=== PATIENT | male | born 1955 | race Caucasian/White ===

== ENCOUNTER 2020-04-21 12:53 | Outpatient (CLI) | payer OTHER, SELFPAY ==
[2020-04-21 14:00] LABS: Alanine Aminotransferase 35 U/L (4-50); Albumin Level 4.4 g/dL (3.5-5.1); Alkaline Phosphatase 56 U/L (38-126); Anion Gap 7 mmol/L (8-16); Aspartate Amino Transferase 46 U/L (17-59); Bilirubin,Total 0.4 mg/dL (0.2-1.3); Blood Urea Nitrogen 12 mg/dL (9-20); Calcium 10.1 mg/dL (8.4-10.2); Carbon Dioxide 32 mmol/L (22-30); Chloride 100 mmol/L (98-107); Cholesterol 196 mg/dL (0-200); Estimated Glomerular Filt Rate > 60; Glucose 88 mg/dL (75-110); HDL Direct 31 mg/dL; Potassium 4.4 mmol/L (3.4-5.0); Sodium 139 mmol/L (137-145); Triglycerides 282 mg/dL (<150)
[2020-04-21 14:11] LABS: LDL Cholesterol Direct 129 mg/dL
[2020-04-21 14:29] LABS: Prostate Specific Antigen 4.5 ng/mL (< OR = 4.0)
== END 2020-04-21 12:54 | disposition home or self-care (01) ==
PROVIDERS: PCP Emergency Medicine; Visit Provider Emergency Medicine
DX: E78.5 Hyperlipidemia, unspecified (principal); Z12.5 Encounter for screening for malignant neoplasm of prostate
CPT/HCPCS: 36415; 80053; 80061; 84153; G0103

== ENCOUNTER 2020-05-01 12:19 | Outpatient (CLI) | payer OTHER, SELFPAY | END 2020-05-01 12:20 | disposition home or self-care (01) | PROVIDERS: PCP Emergency Medicine; Visit Provider Emergency Medicine | DX: Z20.828 Contact with and (suspected) exposure to other viral communicable diseases (principal) | CPT/HCPCS: 36415 ==

== ENCOUNTER 2020-06-20 07:08 | Outpatient (CLI) | payer OTHER, SELFPAY ==
--- NOTE | ~2020-06-20 | XR_ITS ---
EXAMINATION: XR chest 2V DATE: 06/20/2020 07:39 INDICATION: Paresthesias of the back and hands TECHNIQUE: PA and lateral views of the chest are obtained. COMPARISON: 06/15/2013 FINDINGS: The lungs are free of acute opacities. There is no pleural effusion or pneumothorax. Median sternotomy wires and mediastinal surgical clips are seen, likely from prior coronary artery bypass g rafting. There is moderate thoracic spondylosis. IMPRESSION: 1. No acute cardiopulmonary abnormality. Reviewed, dictated and finalized at location A. [employer]
[2020-06-20 07:54] LABS: Alanine Aminotransferase 34 U/L (4-50); Albumin Level 4.2 g/dL (3.5-5.1); Alkaline Phosphatase 59 U/L (38-126); Anion Gap 5 mmol/L (8-16); Aspartate Amino Transferase 40 U/L (17-59); Bilirubin,Total 0.4 mg/dL (0.2-1.3); Blood Urea Nitrogen 16 mg/dL (9-20); Calcium 9.7 mg/dL (8.4-10.2); Carbon Dioxide 29 mmol/L (22-30); Chloride 102 mmol/L (98-107); Cholesterol 203 mg/dL (0-200); Estimated Glomerular Filt Rate > 60; Glucose 102 mg/dL (75-110); HDL Direct 36 mg/dL; Potassium 4.6 mmol/L (3.4-5.0); Sodium 136 mmol/L (137-145); Triglycerides 169 mg/dL (<150)
[2020-06-20 08:04] LABS: LDL Cholesterol Direct 134 mg/dL
== END 2020-06-20 07:09 | disposition home or self-care (01) ==
PROVIDERS: PCP Emergency Medicine; Visit Provider Emergency Medicine
DX: E78.5 Hyperlipidemia, unspecified (principal); R06.00 Dyspnea, unspecified; Z20.828 Contact with and (suspected) exposure to other viral communicable diseases
CPT/HCPCS: 36415; 71046; 80053; 80061

== ENCOUNTER 2020-07-31 09:43 | Outpatient (CLI) | payer OTHER, SELFPAY | END 2020-07-31 09:44 | disposition home or self-care (01) | LOC: ANHCOVIDVC 09:43 | PROVIDERS: PCP Emergency Medicine | DX: Z23 Encounter for immunization (principal) | CPT/HCPCS: 0001A; 91300 ==

== ENCOUNTER 2020-08-21 09:41 | Outpatient (CLI) | payer OTHER, SELFPAY | END 2020-08-21 09:42 | disposition home or self-care (01) | LOC: ANHCOVIDVC 09:41 | PROVIDERS: PCP Emergency Medicine | DX: Z23 Encounter for immunization (principal) | CPT/HCPCS: 0002A; 91300 ==

== ENCOUNTER 2022-01-31 17:02 | Emergency (ER) | payer OTHER, MEDICARE, SELFPAY ==
[2022-01-31] VITALS (14 sets, daily range): BP systolic 146–170; BP diastolic 98–108; PULSE 64–91; RESP 18–20; TEMP 36.7; O2SAT 93–96
--- NOTE | ~2022-01-31 | CT_ITS ---
EXAMINATION: CT abdomen pelvis w con DATE: 01/31/2022 17:54 INDICATION: umbilical hernia TECHNIQUE: Computed tomography (CT) of the abdomen and pelvis was performed with 100 mL Omnipaque-350 intravenous contrast. Automated exposure control and iterative reconstruction technique were employe d. The dose-length product was 1421.24 mGy-cm. COMPARISON: None. FINDINGS: Lower thorax: Mild dependent atelectasis. Mild coronary artery calcification. Liver: Steatosis. Biliary/Gallbladder: Gallbladder is normal. No bile duct dilation. Pancreas: No mass or duct dilation. Spleen: Normal. Adrenals:No mass. Kidneys: No suspicious mass. Punctate bilateral nonobstructing calculi. Mild left perinephric and pro ximal periureteral stranding. 2 mm calcification in the proximal left ureter. No hydronephrosis GI tract: No small or large bowel dilation. Normal appendix. Diverticulosis. Short segment wall thick ening and pericolonic inflammatory change in the distal sigmoid in the left lower quadrant. Mesentery/Peritoneum: No ascites, mass, or free air. Retroperitoneum: No mass. Atherosclerotic abdominal aortic and/or arterial calcifications. Pelvis: Pelvic organs are within normal limits. Soft Tissues: Moderate sized fat-containing umbilical hernia and 1.7 cm neck. Internal fat stranding surrounding inflammatory change Bones: No acute osseous finding. IMPRESSION: 2 mm left proximal ureteral stone causing mild obstructive uropathy. Inflamed, fat-containing umbilic al hernia. Short segment perisigmoid wall thickening and inflammatory changes in the left lower quadr ant may reflect early, mild, or resolving diverticulitis. Reviewed, dictated and finalized at location K. IMPRESSION: 2 mm left proximal ureteral stone causing mild obstructive uropathy. Inflamed, fat-containing umbilical hernia. Short segment perisigmoid wall thickening and inflammatory changes in the left lower quadrant may reflect early, mild, or res olving diverticulitis.
[2022-01-31 17:17] LABS: Basophils Absolute Auto 0.1 K/mm3 (0.0-0.1); Eosinophils Absolute Auto 0.4 K/mm3 (0-0.3); Eosinophils Percent Auto 2.9 % (0-4.4); Hematocrit 43.3 % (42.0-52.0); Hemoglobin 14.8 g/dL (14.0-18.0); Immature Granulocyte Absolute 0.04 K/mm3 (0.00-0.031); Immature Granulocyte Percent A 0.3 % (0-0.5); Lymphocytes Absolute Auto 2.79 K/mm3 (0.9-3.2); Lymphocytes Percent Auto 20.5 % (18.3-44.2); Mean Corpuscular HGB Conc 34.2 g/dl (32-36); Mean Corpuscular Hemoglobin 29.1 pg (26-34); Mean Corpuscular Volume 85.2 fl (80-100); Mean Platelet Volume 9.3 fl (7.4-10.4); Monocytes Absolute Auto 1.5 K/mm3 (0.1-0.6); Monocytes Percent Auto 10.8 % (2.6-8.5); Neutrophils Absolute Auto 8.8 K/mm3 (1.3-6.7); Neutrophils Percent Auto 64.5 % (45.5-73.1); Platelet Count Result 302 k/mm3 (150-375); Red Blood Count 5.08 M/mm3 (4.6-6.20); Red Cell Distribution Width 12.8 % (11.5-14.5); White Blood Count 13.6 K/mm3 (4.5-10.0)
[2022-01-31 17:22] LABS: Appearance Urine Clear (Clear); Bilirubin Urine Negative (Negative); Color Urine Yellow (Yellow); Glucose Urine UA Negative (Negative); Ketones Urine Negative (Negative); Leukocyte Esterase Ur Negative LEU/UL (Negative); Nitrate Urine Negative (Negative); Protein Urine Negative (Negative); Urobilinogen Urine 0.2 mg/dL (<2.0); pH Urine 5.5 (5.0-9.0)
[2022-01-31 17:28] LABS: Alanine Aminotransferase 58 U/L (6-50); Albumin Level 4.5 g/dL (3.5-5.1); Alkaline Phosphatase 77 U/L (38-126); Anion Gap 10 mmol/L (8-16); Aspartate Amino Transferase 48 U/L (17-59); Bilirubin,Total 0.5 mg/dL (0.2-1.3); Blood Urea Nitrogen 12 mg/dL (9-20); Calcium 9.8 mg/dL (8.4-10.2); Carbon Dioxide 27 mmol/L (22-30); Chloride 102 mmol/L (98-107); Estimated CRCL calculation 80 ml/min; Estimated Glomerular Filt Rate > 60; Glucose 113 mg/dL (65-110); Lipase 54 U/L (23-300); Potassium 3.9 mmol/L (3.4-5.0); Sodium 139 mmol/L (137-145)
[2022-01-31 17:36] LABS: Add Urine Microscopic? YES; Blood Urine Trace-Intact (Negative)
[2022-01-31 17:38] LABS: RBC Urine 0-2 /hpf (0-2); Squamous Epithelial Cell Urine Few /hpf (Few); WBC Urine 0-3 /hpf (0-3)
[2022-01-31 17:40] LABS: Bacteria Urine None seen /hpf; Mucus Urine Few /lpf
--- NOTE | 2022-01-31 17:50 | ED.ABDPAIN ---
HPI - Abdominal Pain General Chief Complaint: Abdominal Pain Stated Complaint: abd pain Time Seen by Provider: 01/31/22 17:24 History of Present Illness HPI narrative: 66-year-old male history of umbilical hernia presents the emergency room with abdominal pain. Patient states that he has had umbilical hernia for several months, on states that he has been able to reduce it. States within the last week the hernia was unable to be reduced. Presents here for further evaluation. Patient denies fever. No nausea vomiting diarrhea or constipation. States that he was planning on having the umbilical hernia repaired Related Data Home Medications Medication Instructions Recorded Confirmed aspirin 325 mg tablet See Rx Instructions .Route .COMPLEX 05/09/19 10/26/21 tadalafil 5 mg tablet 5 mg PO DAILY 09/29/21 10/26/21 Allergies Allergy/AdvReac Type Severity Reaction Status Date / Time No Known Allergies Allergy Verified 11/17/21 13:35 Review of Systems Review of Systems: CONSTITUTIONAL: Denies fever, chills, or sweats. EYES: Denies visual changes, redness, or discharge. ENT: Denies rhinorrhea, congestion, sore throat, or otalgia. CARDIOVASCULAR: Denies chest pain, palpitations, or edema. RESPIRATORY: Denies cough or dyspnea. GASTROINTESTINAL: Reports abdominal pain GENITOURINARY: Denies dysuria or hematuria. SKIN: Denies rash or itching. MUSCULOSKELETAL: Denies back pain, joint pain, or myalgia. NEUROLOGIC: Denies headache, numbness, dizziness, or weakness. PSYCHIATRIC: Denies anxiety or depression. [facility] Past Medical History Medical History (Updated 01/31/22 @ 18:26 by Piyush Sage APRN) ASHD (arteriosclerotic heart disease) HLD (hyperlipidemia) Social History Social History Smoking status: Never smoker Alcohol intake: never Exam Narrative: GENERAL: Well-appearing, well-nourished, no physical limitations, and in no acute distress. HEAD: Normocephalic, atraumatic. EYES: Conjunctivae normal, PERRLA and EOMI. CHEST: Clear to auscultation. No respiratory distress. No wheezes rales or rhonchi. No tenderness. HEART: Regular rate and rhythm. No murmur heard. Normal peripheral pulses. ABDOMEN: Soft, umbilical tenderness, nonreducible umbilical hernia, normal active bowel sounds. BACK: No CVA tenderness; No cervical/thoracic/lumbar tenderness, step-offs, bony abnormality; FROM EXTREMITIES: Normal range of motion. No edema. No clubbing or cyanosis SKIN: Warm, dry, no rash. No noted wounds NEURO: No focal deficits. Alert and oriented x3. MAEW. CN's II-XI intact bilaterally, normal gait PSYCH: Cooperative. Normal mood and affect. Course Vital Signs Vital signs: Vital Signs Temperature 36.7 C 01/31/22 17:17 Pulse Rate 91 01/31/22 17:17 Respiratory Rate 20 01/31/22 17:17 Blood Pressure 160/102 H 01/31/22 17:17 Pulse Oximetry 96 01/31/22 17:17 Oxygen Delivery Room Air 01/31/22 17:17 Temperature 36.7 C 01/31/22 17:17 Pulse Rate 91 01/31/22 17:17 Respiratory Rate 20 01/31/22 17:17 Blood Pressure 160/102 H 01/31/22 17:17 Pulse Oximetry 96 01/31/22 17:17 Oxygen Delivery Room Air 01/31/22 17:17 MDM - Abdominal Pain Lab Data Result diagrams: 01/31/22 17:13 01/31/22 17:13 Labs: Lab Results 01/31/22 01/31/22 01/31/22 Range/Units 17:13 17:13 17:16 WBC 13.6 H (4.5-10.0) K/mm3 RBC 5.08 (4.6-6.20) M/mm3 Hgb 14.8 (14.0-18.0) g/dL Hct 43.3 (42.0-52.0) % MCV 85.2 (80-100) fl MCH 29.1 (26-34) pg MCHC 34.2 (32-36) g/dl RDW 12.8 (11.5-14.5) % Plt Count 302 (150-375) k/mm3 MPV 9.3 (7.4-10.4) fl Immature Gran % (Auto) 0.3 (0-0.5) % Neut % (Auto) 64.5 (45.5-73.1) % Lymph % (Auto) 20.5 (18.3-44.2) % [place] % (Auto) 10.8 H (2.6-8.5) % Eos % (Auto) 2.9 (0-4.4) % Baso % (Auto) 1.0 (0.2-1.2) % Lymph # (Auto) 2.79
[2022-01-31] MEDS: HYDROmorphone HCL INJ (*CRX) 1 MG/ML SYR 0.5 MG IV PUSH (18:39)
[2022-01-31] MEDS: SODIUM CHLORIDE 0.9% IV 100 ML 500 ML (18:40)
[2022-01-31] MEDS: AMOXICILLIN/CLAVULANATE K 875-125 MG TAB 1 TABLET PO (19:23)
== END 2022-01-31 19:43 | disposition home or self-care (01) ==
PROVIDERS: Emergency Medicine; Emergency Provider Nurse Practitioner Family; PCP Emergency Medicine
DX: K57.92 Diverticulitis of intestine, part unspecified, without perforation or abscess without bleeding (principal); N13.9 Obstructive and reflux uropathy, unspecified; N20.1 Calculus of ureter; K42.9 Umbilical hernia without obstruction or gangrene; I25.10 Atherosclerotic heart disease of native coronary artery without angina pectoris; E78.5 Hyperlipidemia, unspecified
CPT/HCPCS: 36415; 74177; 80053; 81001; 83690; 85025; 96361; 96374; 99284; A9270; J1170; Q9967

== ENCOUNTER 2022-02-23 07:48 | Outpatient (CLI) | payer OTHER, MEDICARE, MEDICAID, SELFPAY ==
--- NOTE | ~2022-02-23 | XR_ITS ---
EXAMINATION: XR abdomen/kub 1V INDICATION: Left ureteral stone TECHNIQUE: Supine views of the abdomen were obtained on 2 radiographs. COMPARISON: CT from today FINDINGS: No urolithiasis is identified. The bowel gas pattern is normal. There is moderate lumbar sp ondylosis. Phleboliths are noted in the pelvis. IMPRESSION: 1. No urolithiasis identified. Reviewed, dictated and finalized at location A.
--- NOTE | ~2022-02-23 | CT_ITS ---
EXAMINATION: CT abdomen pelvis wo con DATE: 02/23/2022 08:09 INDICATION: Left ureteral stone TECHNIQUE: Computed tomography (CT) of the abdomen and pelvis was performed without intravenous contr ast. The dose-length product (DLP) was 863.56 mGy-cm. Automated exposure control and iterative recons truction technique were employed. COMPARISON: 01/31/2022 FINDINGS: Minimal dependent atelectasis is present in the lung bases. The heart size is normal. The l iver, spleen, pancreas, gallbladder, and adrenal glands are normal. The kidneys are unremarkable. No urolithiasis is identified. No pathologically enlarged abdominal or pelvic lymph nodes are identified . There is no free intraperitoneal gas or evidence of bowel obstruction. Colonic diverticulosis is pr esent without evidence of diverticulitis. An area of mild perisigmoid fatty infiltration is seen in t he left lower quadrant without significant change since the prior examination, likely chronic rather than acute diverticulitis. There is a small umbilical hernia containing fat with increasing infiltrat ion of the herniated fat. There is moderate lumbar spondylosis. The appendix is normal. IMPRESSION: 1. No definite urolithiasis identified. 2. Small umbilical hernia containing fat with increasing inflammation and herniated fat. Reviewed, dictated and finalized at location A. IMPRESSION: 1. No definite urolithiasis identified. 2. Small umbilical hernia containing fat with increasing inflammation and herni ated fat.
== END 2022-02-23 07:49 | disposition home or self-care (01) ==
PROVIDERS: PCP Emergency Medicine; Visit Provider Nurse Practitioner Adult Health
DX: N20.1 Calculus of ureter (principal); K42.9 Umbilical hernia without obstruction or gangrene
CPT/HCPCS: 74018; 74176

== ENCOUNTER 2022-03-05 07:27 | Outpatient (CLI) | payer MEDICARE, OTHER, SELFPAY ==
[2022-03-05 07:54] LABS: Hemoglobin A1C 6.1 % (<5.7)
[2022-03-05 07:57] LABS: Alanine Aminotransferase 49 U/L (6-50); Albumin Level 4.6 g/dL (3.5-5.1); Alkaline Phosphatase 72 U/L (38-126); Anion Gap 7 mmol/L (8-16); Aspartate Amino Transferase 38 U/L (17-59); Bilirubin,Total 0.5 mg/dL (0.2-1.3); Blood Urea Nitrogen 20 mg/dL (9-20); Calcium 9.6 mg/dL (8.4-10.2); Carbon Dioxide 27 mmol/L (22-30); Chloride 104 mmol/L (98-107); Cholesterol 192 mg/dL (0-200); Estimated Glomerular Filt Rate > 60; Glucose 123 mg/dL (65-110); HDL Direct 38 mg/dL; Potassium 4.4 mmol/L (3.4-5.0); Sodium 138 mmol/L (137-145); Triglycerides 200 mg/dL (<150)
[2022-03-05 08:08] LABS: LDL Cholesterol Direct 108 mg/dL
[2022-03-08 19:45] LABS: Vitamin D 1,25 (OH)2 Total 36 pg/mL (18-72); Vitamin D2 1,25 (OH)2 <8 pg/mL; Vitamin D3 1,25 (OH)2 36 pg/mL
== END 2022-03-05 07:28 | disposition home or self-care (01) ==
PROVIDERS: PCP Emergency Medicine; Visit Provider Emergency Medicine
DX: N20.0 Calculus of kidney (principal); R53.83 Other fatigue; R73.9 Hyperglycemia, unspecified; E78.5 Hyperlipidemia, unspecified
CPT/HCPCS: 36415; 80053; 80061; 82652; 83036

== ENCOUNTER 2022-03-22 08:04 | Outpatient (CLI) | payer OTHER, MEDICARE, SELFPAY ==
--- NOTE | 2022-03-22 08:00 | ECG_ITS ---
Measurements Intervals [place] Rate: 80 P: 1 TX: 192 QRS: -14 QRSD: 94 T: 58 QT: 361 QTc: 416 Interpretive Statements SINUS RHYTHM INFERIOR MYOCARDIAL INFARCTION [40+ ms Q WAVE AND/OR ST/T ABNORMALITY IN II/aVF], PROBABLY OLD BASELINE ARTIFACT PRESENT NO PREVIOUS ECG AVAILABLE FOR COMPARISON Electronically Signed On 03-22-2022 16:14:32 CDT by Yovanny Wilson M.D.
== END 2022-03-22 08:05 | disposition home or self-care (01) ==
LOC: ANHSURGERY 08:09
PROVIDERS: PCP Emergency Medicine; Visit Provider Surgery
DX: K42.0 Umbilical hernia with obstruction, without gangrene (principal); I10 Essential (primary) hypertension; Z01.818 Encounter for other preprocedural examination; R94.31 Abnormal electrocardiogram [ECG] [EKG]
CPT/HCPCS: 36415; 86850; 86900; 86901; 93005

== ENCOUNTER 2022-03-28 02:35 | Day surgery (SDC) | payer OTHER, MEDICARE, SELFPAY ==
[2022-03-15 14:11] VITALS: BMI 40.5
--- NOTE | 2022-03-15 14:46 | PC.NURSE ---
Report to the Outpatient Waiting Room, entrance under the green pavilion located off [facility], at time __8:00AM on date __03/28/22___. Planned Procedure Time: __10:00AM . Time changes happen often and if your time is changed the preop area will call you the afternoon before. - You and your visitor will be asked to self-screen and do not enter if you have any COVID symptoms. - We encourage only one visitor and NO visitors under age 16 are allowed at this time. Your visitor will receive communication by the phone number that is given day of service. - The patient visitor is requested to social distance or may leave the building when not with patient due to restrictions. - A mask is required within the hospital. Patients may have clear liquids (water, carbonated beverages, clear teas, apple juice) until 3 hours prior to surgery with a maximum of 20 ounces. - No food from midnight until time of surgery. Take the following medications with a SIP of water the morning of surgery: ___AMLODIPINE Medications to discontinue per physician ___DECREASE ASPIRIN FROM 325MG TO 81MG 7 DAYS PRE-OP PER DR LINN'S ORDER. PT'S STATES SHE WILL CONTACT GAMBLING BROKER TO CONFIRM. _ Date to take lower dose__03/21/22 Please no make-up, nail kiswahili, hairspray, perfume, deodorant, or body powder the day of surgery. No jewelry (including any body piercings) or valuables the day of surgery, leave them at home. Please take a shower or bath the night before, or the morning of, surgery with an antibacterial soap. Wear comfortable, loose fitting clothing. Children are encouraged to wear pajamas. - Jewelry must be removed prior to entering the operating room. Rings and piercings that are not removed may be cut off. - The hospital will not accept responsibility for valuables. - Please leave all valuables, including medications, at home the day of surgery. *HIBICLENS SHOWER MORNING OF SURGERY* If you are going home after surgery, a licensed crude oil driver must drive you home. - NO public transportation without another adult. - We recommend that an adult stay with you for 24 hours following discharge. - We also recommend that you do not drive, make important decision, drink alcoholic beverages, or take any drugs that were not prescribed by your health care provider for at least 24 hours after your discharge time. Follow any additional instructions given to you from your surgeon. If you or anyone in your household have experienced Covid symptoms in the past week, please notify your surgeon or the nurse liaison at the phone number below for possible testing. Telephone instructions given to _PATIENT AND -BARB___and asked if any additional questions and then verbalized understanding. Patient advised to call surgeon office or pre surgery nurse liaison [phone] if any additional questions.
[2022-03-28] VITALS (11 sets, daily range): BP systolic 116–165; BP diastolic 79–98; PULSE 81–90; RESP 14–23; TEMP 36.6–36.9; O2SAT 92–97
--- NOTE | 2022-03-28 08:33 | P.HP_ITS ---
H&P: HPI History of Present Illness Date/Time: 03/28/22 08:33 Chief Complaint: incarcerated umbilical hernia Narrative: Bhaskar is a 66 y/o male who presents to the office accompanied by his following recent visit at [facility] ED on 01/31/22 due to abdominal pain. Patient states that he has had a bulge at his umbilicus for about 3 years. He states there has been an increase in size over the years. States he has been able to reduce the bulge, however, the week prior to going to the ED he had been unable to reduce it. Imaging c/w incarcerated umbilical hernia. Review of Systems Review of Systems: All systems reviewed & are unremarkable except as noted in HPI and below PMFSH Past Medical History Medical History ASHD (arteriosclerotic heart disease) HLD (hyperlipidemia) Surgical History Surgical History Status post double vessel coronary artery bypass Family History Family History Mother Breast cancer Unknown Heart disease Social History Social History Social History: drinks tea daily Smoking status: Never smoker Alcohol intake: current Alcohol use details: rarely drinks alcohol-1 beer/year Substance use: never Living arrangements: with family Additional living arrangements comments: 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 care 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: No Meds Home Medications and Allergies Home Medications Medication Instructions Recorded Confirmed Type aspirin 325 mg tablet See Rx Instructions .Route .COMPLEX 05/09/19 03/15/22 History atorvastatin 80 mg tablet 80 mg PO DAILY #90 tabs 01/11/21 03/15/22 Rx fenofibrate nanocrystallized 48 mg 48 mg PO DAILY #90 tabs 06/21/21 03/15/22 Rx tablet (Tricor) tadalafil 5 mg tablet 5 mg PO DAILY 09/29/21 03/15/22 History amlodipine 5 mg tablet (Norvasc) 5 mg PO DAILY #90 tabs 02/01/22 03/15/22 Rx zolpidem 10 mg tablet (Ambien) 10 mg PO .qhs PRN insomnia #30 tabs 09/19/22 10/18/22 Rx losartan 50 mg tablet 100 mg PO QAM 03/15/22 03/15/22 History Allergies Allergy/AdvReac Type Severity Reaction Status Date / Time No Known Allergies Allergy Verified 03/15/22 14:05 Exam Const: General: cooperative, comfortable, no acute distress and obese Resp: Auscultation: clear to auscultation bilaterally Cardio: Rate: regular rate Rhythm: regular rhythm GI: Inspection: normal to inspection, distended and obesity GI Palp: Yes abdominal tenderness, Yes Soft to palpation, Yes Tenderness to palpation present (GI), No Guarding due to palpation present (GI), No Rigid due to palpation and Yes Hernia present Other: incarcerated [facility] Assessment and Plan Assessment and plan (1) Incarcerated umbilical hernia: Code(s): K42.0 - Umbilical hernia with obstruction, without gangrene Status: Acute Assessment and Plan: will setup for robotic assisted repair c mesh (2) ASHD (arteriosclerotic heart disease): Code(s): I25.10 - Atherosclerotic heart disease of [place] coronary artery without angina pectoris Status: Acute Assessment and Plan: stable and medically cleared
--- NOTE | 2022-03-28 08:36 | WPDHPUPDATE1 ---
History and Physical Update Update Date/Time: 03/28/22 08:36 History and Physical has been reviewed, including an updated exam of the patient. There are NO changes in the patient's condition. Risks, benefits, and alternatives have been discussed and questions answered. Patient agrees to proceed with procedure.
--- NOTE | 2022-03-28 09:10 | WPDANESEPPF ---
Anes - Initial Pre Proc Eval Procedure: Operation Date: 03/28/22 10:00 Proposed Procedures p Robotic Assisted Incarcerated Umbilical Hernia Repair with Mesh - Janel Moses MD Date/Time: 03/28/22 09:10 Surgeon: Janel Moses MD Pre Op Diagnosis: incarcerated umbilical hernia Patient Data Age: 66 Gender: M Height: 1.68 m Weight: 114 kg Allergies Allergy/AdvReac Type Severity Reaction Status Date / Time No Known Allergies Allergy Verified 03/15/22 14:05 Home Medications Medication Instructions Recorded Confirmed Type aspirin 325 mg tablet See Rx Instructions .Route .COMPLEX 05/09/19 03/15/22 History atorvastatin 80 mg tablet 80 mg PO DAILY #90 tabs 01/11/21 03/15/22 Rx fenofibrate nanocrystallized 48 mg 48 mg PO DAILY #90 tabs 06/21/21 03/15/22 Rx tablet (Tricor) tadalafil 5 mg tablet 5 mg PO DAILY 09/29/21 03/15/22 History amlodipine 5 mg tablet (Norvasc) 5 mg PO DAILY #90 tabs 02/01/22 03/15/22 Rx zolpidem 10 mg tablet (Ambien) 10 mg PO .qhs PRN insomnia #30 tabs 02/14/22 03/15/22 Rx losartan 50 mg tablet 100 mg PO QAM 03/15/22 03/15/22 History Patient hx anesthesia problems: none Family hx anesthesia problems: none Results Review: All pre-operative results and documents have been reviewed as part of the pre-operative evaluation. 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 Informed Consent: The patient's anesthetic plan and its attendant risks and benefits were discussed with the patient/family/POA. Questions were solicited and answers provided to the satisfaction of the patient/family/POA.
[2022-03-28] MEDS: ACETAMINOPHEN 500 MG TABLET 1000 MG PO (09:30)
[2022-03-28] MEDS: LACTATED RINGERS 1,000 ML 30 ML IV CONT ×2 (09:30→12:10)
[2022-03-28] MEDS: ceFAZolin 2 GM/D5W 50 ML 2 GM/50 ML BAG IVPB (09:52)
[2022-03-28] MEDS: BUPIVACAINE/EPINEPHRINE 0.25% 50 ML VIAL 30 ML INFILTRATE (10:49)
--- NOTE | 2022-03-28 12:07 | W.PM.PROC2 ---
Procedure Note - Detailed Date of Procedure 03/28/22 Pre-op Diagnosis incarcerated umbilical hernia Post-op Diagnosis Same Procedure Performed Robotic assisted transabdominal pre peritoneal repair incarcerated umbilical hernia with mesh Surgeon Janel Moses MD Anesthesia General Indications 66-year-old male presenting with a sizable incarcerated umbilical hernia Findings 3.5 cm umbilical hernia c incarcerated preperitoneal fat Description of Procedure The patient was taken the operating room placed in the supine position. After adequate induction of general anesthesia, the patient was prepped and draped in normal sterile fashion. A time-out was then done to verify the patient's identity as well as the procedure being performed. I began by making a 5 mm incision in the left upper quadrant. Through this, a Veress needle was placed into the peritoneal cavity and CO2 gas was insufflated. After adequate pneumoperitoneum was achieved, a 5 mm trocar was placed through this incision. I then placed the laparoscope through this trocar site and under direct visualization I placed a 8 mm port in the left mid abdomen as well as an additional 8 mm port in the left lower abdomen. I then moved the camera to the lower port and replaced the 5 mm port with a 12 mm airport. The robot was then docked to the 3 port sites. I then went to the robotic console. I began by identifying the hernia. A moderate-sized incarcerated umbilical hernia was noted. I created a preperitoneal flap approximately 6 cm lateral to the hernia. This flap was carried widely superior and inferior to the defect. I then was able to reduce this hernia. The hernia was noted to contain a large amount of preperitoneal fat. Once reduced, I also reduced and dissected out the hernia sac. I then carried the flap distally past the hernia. I then closed the approximately 3.5 cm defect with 0 strata fix suture. I then placed a 4x6 in [address] mesh into the abdominal cavity. The positional stitch was placed in the middle of the mesh and brought up centering the mesh over the defect. Once this was done, I used 3.0 vicry suture interrupted in the four cardinal directions to hold the mesh in place. Once the mesh was completely positioned, I was happy with our tension-free repair. The mesh was noted to have good overlap of the defect. I then closed the flap with 2 0 V lock. At this point, the robot was undocked and all ports were removed. I then closed the 12 mm port site with an 0 Vicryl [id number] suture at the fascial level. All port sites were then closed with 4 O Monocryl subcuticular suture. The patient tolerated the procedure well, is extubated in the operating room postoperative, and will be transferred to the recovery room in stable condition. Implants 4 x 6 in Ventralight mesh Estimated Blood Loss 10 Drains No Packing No Pathology None sent Complications No immediate complications Condition Stable Disposition PACU
[2022-03-28] MEDS: fentaNYL CITRATE INJ (*CRX) 100 MCG/2 ML VIAL 25 MCG IV PUSH ×2 (12:51→12:57)
[2022-03-28] MEDS: oxyCODONE HCL (*CRX) 5 MG TAB IR PO (15:08)
== END 2022-03-28 15:15 | disposition home or self-care (01) ==
PROVIDERS: PCP Emergency Medicine; Visit Provider Surgery
PROC: (CPT 49653; principal; 2022-03-28 10:00)
DX: K42.0 Umbilical hernia with obstruction, without gangrene (principal); I25.10 Atherosclerotic heart disease of native coronary artery without angina pectoris; E78.5 Hyperlipidemia, unspecified; Z79.82 Long term (current) use of aspirin; Z95.1 Presence of aortocoronary bypass graft; E66.01 Morbid (severe) obesity due to excess calories; Z68.41 Body mass index [BMI] 40.0-44.9, adult
CPT/HCPCS: 49653; S2900; A9270; C1781; J0330; J0690; J1100; J1170; J2250; J2370; J2405; J2704; J3010; J7120

== ENCOUNTER 2022-08-01 07:11 | Outpatient (CLI) | payer OTHER, MEDICARE, SELFPAY ==
[2022-08-01 07:41] LABS: Alanine Aminotransferase 40 U/L (6-50); Albumin Level 4.1 g/dL (3.5-5.1); Alkaline Phosphatase 65 U/L (38-126); Anion Gap 3 mmol/L (8-16); Aspartate Amino Transferase 38 U/L (17-59); Bilirubin,Total 0.7 mg/dL (0.2-1.3); Blood Urea Nitrogen 15 mg/dL (9-20); Carbon Dioxide 29 mmol/L (22-30); Chloride 106 mmol/L (98-107); Cholesterol 177 mg/dL (0-200); Estimated Glomerular Filt Rate > 60; Glucose 103 mg/dL (65-110); HDL Direct 33 mg/dL; Potassium 4.1 mmol/L (3.4-5.0); Sodium 138 mmol/L (137-145); Triglycerides 146 mg/dL (<150)
[2022-08-01 07:52] LABS: LDL Cholesterol Direct 111 mg/dL
[2022-08-01 08:07] LABS: Prostate Specific Antigen 5.7 ng/mL (< OR = 4.0)
== END 2022-08-01 07:12 | disposition home or self-care (01) ==
LOC: ANHLAB 07:13
PROVIDERS: PCP Emergency Medicine; Visit Provider Emergency Medicine
DX: E78.5 Hyperlipidemia, unspecified (principal); I10 Essential (primary) hypertension; Z12.5 Encounter for screening for malignant neoplasm of prostate
CPT/HCPCS: 36415; 80053; 80061; 84153; G0103

== ENCOUNTER 2022-10-28 07:15 | Outpatient (CLI) | payer OTHER, MEDICARE, SELFPAY ==
[2022-10-28 10:17] LABS: Prostate Specific Antigen 4.7 ng/mL (< OR = 4.0)
== END 2022-10-28 07:16 | disposition home or self-care (01) ==
PROVIDERS: PCP Emergency Medicine; Visit Provider Urology
DX: R97.20 Elevated prostate specific antigen [PSA] (principal)
CPT/HCPCS: 36415; 84153; G0103

== ENCOUNTER 2024-01-24 01:30 | Day surgery (SDC) | payer OTHER, MEDICARE, SELFPAY ==
[2024-01-19 12:26] VITALS: BMI 42.7
[2024-01-24 07:38] VITALS: BP 142/95; PULSE 80; RESP 18; TEMP 36.1; O2SAT 96; BMI 39.7
[2024-01-24] MEDS: LACTATED RINGERS 1,000 ML 150 ML IV CONT (07:56)
--- NOTE | 2024-01-24 08:01 | WPDANESEPPF ---
Anes - Initial Pre Proc Eval Procedure: Operation Date: 01/24/24 09:00 Proposed Procedures p Esophagogastroduodenoscopy - Tima Goodwin MD Date/Time: 01/24/24 08:01 Surgeon: Tima Goodwin MD Pre Op Diagnosis: GERD Patient Data Age: 68 Gender: M Height: 1.68 m Weight: 111.7 kg Last Vital Signs Temp 97.0 F L 01/24/24 07:38 Pulse 80 01/24/24 07:38 Resp 18 01/24/24 07:38 BP 142/95 H 01/24/24 07:38 Pulse Ox 96 01/24/24 07:38 O2 Del Method Room Air 01/24/24 07:38 Allergies Allergy/AdvReac Type Severity Reaction Status Date / Time No Known Allergies Allergy Verified 01/24/24 07:45 Home Medications Medication Instructions Recorded Confirmed Type aspirin 325 mg tablet See Rx Instructions .Route .COMPLEX 05/09/19 01/24/24 History tadalafil 5 mg tablet 5 mg PO DAILY 09/29/21 01/24/24 History fenofibrate nanocrystallized 48 mg See Rx Instructions .Route 10/03/22 01/24/24 Rx tablet .COMPLEX #90 tabs atorvastatin 80 mg tablet 80 mg PO DAILY #90 tabs 12/09/22 01/24/24 Rx nystatin-triamcinolone 100,000 See Rx Instructions .Route 01/16/23 01/24/24 Rx unit/g-0.1 % topical cream .COMPLEX #60 grams albuterol sulfate 90 mcg/actuation See Rx Instructions .Route 02/13/23 01/24/24 Rx aerosol inhaler .COMPLEX #8.5 ea triamcinolone acetonide 0.1 % See Rx Instructions .Route 02/15/23 01/24/24 Rx topical ointment .COMPLEX #60 grams fluticasone propionate 50 1 spray intranasal BID #48 grams 04/17/23 01/24/24 Rx mcg/actuation nasal spray,suspension (Flonase Allergy Relief) ketoconazole 2 % topical cream See Rx Instructions .Route 05/15/23 01/24/24 Rx .COMPLEX #30 grams losartan 50 mg tablet See Rx Instructions .Route 08/09/23 01/24/24 Rx .COMPLEX #180 tabs zolpidem 10 mg tablet 10 mg PO QHS PRN insomnia #30 tabs 12/15/23 01/24/24 Rx amlodipine 5 mg tablet See Rx Instructions .Route 01/05/24 01/24/24 Rx .COMPLEX #90 tabs Patient hx anesthesia problems: none Family hx anesthesia problems: none Results Review: All pre-operative results and documents have been reviewed as part of the pre-operative evaluation. [facility] Past Medical History Medical History Actinic keratosis of left cheondoism Acute pain of left wrist ASHD (arteriosclerotic heart disease) Atherosclerotic heart disease of [place] coronary artery with angina pectoris Benign prostatic hyperplasia Close exposure to COVID-19 virus Contact dermatitis Cough Dry cough Dyspnea on exertion Elevated fasting glucose Fever HLD (hyperlipidemia) Hyperglycemia Left lower quadrant pain Sinus congestion Sinusitis URI with cough and congestion URI, acute Surgical History Surgical History H/O umbilical hernia repair 03/28/22 Robotic assisted transabdominal pre peritoneal repair incarcerated umbilical hernia with mesh Status post double vessel coronary artery bypass Family History Family History Mother Breast cancer Unknown Heart disease Social History Social History Social History: drinks tea daily Smoking status: Never smoker Second hand tobacco smoke exposure: No Alcohol intake: never Alcohol use details: rarely drinks alcohol-1 beer/year Substance use: never Substance use type: does not use Current Housing: Decline to Answer Concerned About Future Housing: Decline to Answer Difficulty Paying Gas/Electric Bills: Decline to Answer Difficulty Paying for Meds: Decline to Answer Currently Unemployed: Decline to Answer Education: Decline to Answer Difficulty w/ Childcare or Family Care: Decline to Answer Living arrangements: with family Additional living arrangements comments: Occupation/Education: occupation Additional occupation/e
--- NOTE | 2024-01-24 09:09 | PM.HPGS ---
History of Present Illness History of Present Illness Consent: Risks, benefits, and alternatives have been discussed and questions answered. Patient agrees to proceed with procedure. Chief complaint: GERD Narrative: Bhaskar Dunbar is a 68 year old male with coughing spells, recently started using nexium otc. Never had EGD. Review of Systems Review of Systems: All systems reviewed & are unremarkable except as noted in HPI and below PMFSH Past Medical History Medical History (Updated 01/24/24 @ 09:11 by Tima Goodwin MD) Actinic keratosis of left denominational Acute pain of left wrist ASHD (arteriosclerotic heart disease) Atherosclerotic heart disease of [place] coronary artery with angina pectoris Benign prostatic hyperplasia Close exposure to COVID-19 virus Contact dermatitis Cough Dry cough Dyspnea on exertion Elevated fasting glucose Fever HLD (hyperlipidemia) Hyperglycemia Left lower quadrant pain Sinus congestion Sinusitis URI with cough and congestion URI, acute Surgical History Surgical History H/O umbilical hernia repair 03/28/22 Robotic assisted transabdominal pre peritoneal repair incarcerated umbilical hernia with mesh Status post double vessel coronary artery bypass Family History Family History Mother Breast cancer Unknown Heart disease Social History Social History Social History: drinks tea daily Smoking status: Never smoker Second hand tobacco smoke exposure: No Alcohol intake: never Alcohol use details: rarely drinks alcohol-1 beer/year Substance use: never Substance use type: does not use Current Housing: Decline to Answer Concerned About Future Housing: Decline to Answer Difficulty Paying Gas/Electric Bills: Decline to Answer Difficulty Paying for Meds: Decline to Answer Currently Unemployed: Decline to Answer Education: Decline to Answer Difficulty w/ Childcare or Family Care: Decline to Answer Living arrangements: with family Additional living arrangements comments: Occupation/Education: occupation 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 Spiritual care concerns: No Meds Home Medications and Allergies Home Medications Medication Instructions Recorded Confirmed Type aspirin 325 mg tablet See Rx Instructions .Route .COMPLEX 05/09/19 01/24/24 History tadalafil 5 mg tablet 5 mg PO DAILY 09/29/21 01/24/24 History fenofibrate nanocrystallized 48 mg See Rx Instructions .Route 10/03/22 01/24/24 Rx tablet .COMPLEX #90 tabs atorvastatin 80 mg tablet 80 mg PO DAILY #90 tabs 12/09/22 01/24/24 Rx nystatin-triamcinolone 100,000 See Rx Instructions .Route 01/16/23 01/24/24 Rx unit/g-0.1 % topical cream .COMPLEX #60 grams albuterol sulfate 90 mcg/actuation See Rx Instructions .Route 02/13/23 01/24/24 Rx aerosol inhaler .COMPLEX #8.5 ea triamcinolone acetonide 0.1 % See Rx Instructions .Route 02/15/23 01/24/24 Rx topical ointment .COMPLEX #60 grams fluticasone propionate 50 1 spray intranasal BID #48 grams 04/17/23 01/24/24 Rx mcg/actuation nasal spray,suspension (Flonase Allergy Relief) ketoconazole 2 % topical cream See Rx Instructions .Route 05/15/23 01/24/24 Rx .COMPLEX #30 grams losartan 50 mg tablet See Rx Instructions .Route 08/09/23 01/24/24 Rx .COMPLEX #180 tabs zolpidem 10 mg tablet 10 mg PO QHS PRN insomnia #30 tabs 12/15/23 01/24/24 Rx amlodipine 5 mg tablet See Rx Instructions .Route 01/05/24 01/24/24 Rx .COMPLEX #90 tabs Allergies Allergy/AdvReac Type Severity Reaction Status Date / Time No Known Allergies Allergy Verified 01/24/24 07:45 Vital Signs Vital Signs - 24 hr 01/24/24 07:38 Temperature 97.0 F L Pulse Rate 80 Respiratory Rate 18 Blood Pressure 142/95 H Pulse Oximetry 96 Oxygen Deliv
[2024-01-24] MEDS: BENZOCAINE (*SP) 60 ML SPRAY CAN (HURRICAINE) 1 SPRAY MUCOUS MEM (09:14)
[2024-01-24 09:29] VITALS: BP 116/83; PULSE 86; RESP 21; O2SAT 94
[2024-01-24 09:39] VITALS: BP 123/84; PULSE 82; RESP 24; O2SAT 94
[2024-01-24 09:49] VITALS: BP 125/70; PULSE 84; RESP 22; O2SAT 98
== END 2024-01-24 10:00 | disposition home or self-care (01) ==
PROVIDERS: PCP Emergency Medicine; Visit Provider Internal Medicine Gastroenterology
PROC: 0DJ08ZZ Inspection of Upper Intestinal Tract, Via Natural or Artificial Opening Endoscopic (ICD-10-PCS; CPT 43235; principal; 2024-01-24 09:00)
DX: K20.0 Eosinophilic esophagitis (principal); I25.10 Atherosclerotic heart disease of native coronary artery without angina pectoris; N40.0 Benign prostatic hyperplasia without lower urinary tract symptoms; E78.5 Hyperlipidemia, unspecified; Z95.1 Presence of aortocoronary bypass graft; E66.01 Morbid (severe) obesity due to excess calories; Z68.39 Body mass index [BMI] 39.0-39.9, adult; Z79.82 Long term (current) use of aspirin; Z79.51 Long term (current) use of inhaled steroids
CPT/HCPCS: 43239; 88305; J2704; J7120

== ENCOUNTER 2024-06-17 07:08 | Outpatient (CLI) | payer OTHER, MEDICARE, SELFPAY ==
[2024-06-17 07:35] LABS: Hemoglobin A1C 6.1 % (<5.7)
[2024-06-17 07:44] LABS: Anion Gap 10 mmol/L (4-12); Blood Urea Nitrogen 10 mg/dL (9-20); Carbon Dioxide 23 mmol/L (22-30); Chloride 103 mmol/L (98-107); Potassium 4.2 mmol/L (3.4-5.0); Sodium 136 mmol/L (137-145)
[2024-06-17 07:45] LABS: Alanine Aminotransferase 54 U/L (6-50); Albumin Level 4.4 g/dL (3.5-5.1); Alkaline Phosphatase 67 U/L (38-126); Aspartate Amino Transferase 37 U/L (17-59); Bilirubin,Total 0.6 mg/dL (0.2-1.3); Calcium 9.7 mg/dL (8.4-10.2); Cholesterol 266 mg/dL (0-200); Estimated Glomerular Filt Rate > 60; Glucose 121 mg/dL (65-110); HDL Direct 40 mg/dL; Triglycerides 150 mg/dL (<150)
[2024-06-17 07:56] LABS: LDL Cholesterol Direct 187 mg/dL
[2024-06-17 09:32] LABS: Vitamin D 25 Hydroxy 39.7 ng/mL
--- OUTSIDE RECORDS SUMMARY | 2024-06-20 11:30 | XMS_ITS | Referral Summary ---
Author Organization [facility] Address [address] [address] Care Team Providers Care Project Portfolio Analyst Name Role Phone Donnell Mora MD Primary Care Provider [phone] Source Comments [facility],non-owned Affiliates and Associated Physician Practices is amultiple site organization consisting of ambulatory clinics and hospital sitesin [place], [place] and [place]. This disclosure is being madepursuant to the Care Everywhere program and may not contain all information available regarding this patient. Last updated 18.[facility] Immunizations Name Administration Dates Next Due FLU VACCINE QUAD IIV4 PF ID 03/26/2016 ZOSTER VACCINE, LIVE 01/30/2016 Social History Tobacco Use Types Packs/Day Years Used Date Smoking Tobacco: Never Assessed Sex and Gender Information Value Date Recorded Sex Assigned at Not on file Gender Identity Not on file Sexual Orientation Not on file Plan of Treatment Not on file Care Teams Project Portfolio Analyst Relationship Specialty Start Date End Date Donnell Mora MD [address] [place] [id number] PCP - General 11/28/17
--- OUTSIDE RECORDS SUMMARY | 2024-06-20 11:30 | XMS_ITS | Clinical Summary ---
Author Organization [facility] Address [address] [place] [address] Care Team Providers Care Certified Wellness Program Coordinator Name Role Phone Donnell Mora MD Primary Care Provider [phone] Source Comments [facility],non-owned Affiliates and Associated Physician Practices is amultiple site organization consisting of ambulatory clinics and hospital sitesin [place], [place] and [place]. This disclosure is being madepursuant to the Care Everywhere program and may not contain all information available regarding this patient. Last updated 18.[facility] Immunizations Name Administration Dates Next Due FLU VACCINE QUAD IIV4 PF ID 03/26/2016 ZOSTER VACCINE, LIVE 01/30/2016 Social History Tobacco Use Types Packs/Day Years Used Date Smoking Tobacco: Never Assessed Sex and Gender Information Value Date Recorded Sex Assigned at Not on file Gender Identity Not on file Sexual Orientation Not on file Plan of Treatment Health Maintenance Due Date Last Done Comments COLOGUARD (AGES 45-75) - COL ON CA SCREENING 1955 COLON MONITORING 1955 COLONOSCOPY - COLON CA SCREENING 1955 CT COLONOGRAPHY - COLON CA SCREENING 1955 Colorectal Cancer Screening 1955 FIT - COLON CA SCREENING 1955 FLEX SIG - COLON CA SCREENING 1955 LIPID TESTING 1955 MEDICARE AWV ? 12 MONTHS 1955 HEPATITIS C SCREENING 08/17/1973 DTAP/TDAP/TD VACCINES (1 - Tdap) 08/21/1974 PNEUMOCOCCAL VACCINE 50+ (1 of 1 - PCV) 08/21/2005 ZOSTER VACCINE (2 of 3) 03/26/2016 01/30/2016 COVID-19 VACCINE (2023-2 5 season) 2024 INFLUENZA VACCINE (#1) 2024 03/26/2016 DEPRESSION SCREENING 05/29/2024 Respiratory Syncytial Virus (RSV) Vaccine Pt: or over 60 yrs (1 - 1-dose 75+ series) 08/21/2030 HEPATITIS B VACCINE Aged Out No longe r eligible based on patient's age to complete this topic HIB VACCINE Aged Out No longer eligi ble based on patient's age to complete this topic HPV VACCINE Aged Out No longer eligi ble based on patient's age to complete this topic MENINGOCOCCAL (Group B) VACCINE Aged Out No longer eligible based on patient's age to complete this topic MENINGOCOCCAL VACCINE Aged Out No ramona aguila eligible based on patient's age to complete this topic Care Teams Certified Wellness Program Coordinator Relationship Specialty Start Date End Date Donnell Mora MD [address] [place] [address] PCP - General 11/28/17
--- OUTSIDE RECORDS SUMMARY | 2024-06-20 11:30 | XMS_ITS | Clinical Summary ---
Author Organization [facility] [address] Address [address] [place] [address] Care Team Providers Care Hand Screen Printer Name Role Phone Donnell Mora MD Primary Care Provide r Allergies No known active allergies Medications aspirin 325 mg EC tablet Take one by mouth one time per day 0 0 08/13/2009 Active dutasteride-castellon sulosin (SUJEY) 0.5-0.4 mg capsule, ER multiphase 24 hr take 1 capsule by oral route every day ;30 minutes after the same meal each day 0 06/08/2012 Active atorvastatin (LIPITOR) 80 mg tablet TAKE 1 TABLET BY MOUTH EVERY DAY 30 0 08/13/2009 Active valsartan (DIOVAN) 160 mg tablet take 1 tablet by oral route every day 30 0 02/28/2014 Active Active Problems Problem Noted Date Diagnosed Date Coronary artery disease invo lving [place] coronary artery of [place] heart without angina pectoris 03/23/2017 Hx of CABG 03/23/2017 Surgical History Surgery Date Site/Laterality Comments CORONARY ARTERY BYPASS GRAFT Coronary Artery Bypass Graft Medical History Medical History Date Comments Chronic coronary artery disease Coronary Artery Disease Hypertension Hypertension Adiposity Obesity Social History Tobacco Use Types Packs/Day Years Used Date Smoking Tobacco: Never Smokeless Tobacco: Never Tobacco Cessation:Counseling Given: Not Answered Alcohol Use Standard Drinks/Week Comments Yes 0 (1 standard drink = 0.6 oz pur e alcohol) Sex and Gender Information Value Date Recorded Sex Assigned at Not on file Legal Sex Male 11:46 PM DRAFTER CASTINGS Gender Identity Not on file Sexual Orientation Not on file Obstetrics History Last Filed Vital Signs Vital Sign Reading Time Taken Comments Blood Pressure 144/82 08/01/2023 8:37 AM DRAFTER CASTINGS Pulse 79 08/01/2023 8:37 AM DRAFTER CASTINGS Temperature - - Respiratory Rate 12 03/23/2017 11:00 AM CDT Oxygen Saturation 97% 08/01/2023 8:37 AM DRAFTER CASTINGS Inhaled Oxygen Concentration - - Weight 119.7 kg (264 lb) 08/01/2023 8:37 AM DRAFTER CASTINGS Height 167.6 cm (5' 6 ) 08/01/2023 8:37 AM DRAFTER CASTINGS Body Mass Index 42.61 08/01/2023 8:37 AM DRAFTER CASTINGS Plan of Treatment Health Maintenance Due Date Last Done Comments Colon Cancer Screening-Colonoscopy 1955 Depression Screening 1955 Fall Risk Assessment 1955 Hepatitis C Screening 1955 Prostate Cancer Screening-PSA 1955 DTaP/Tdap/Td Vaccine (1 - Tdap) 08/21/1966 Hepatitis B Screening 08/21/1973 Zoster Vaccine (2 of 3) 03/26/2016 01/30/2016 Pneumococcal vaccine 65+ (1 of 1 - PCV) 08/21/2020 Well Visit 65+ 08/21/2020 Influenza Vaccine (#1) 2024 9, 02/24/2018, 04/08/2017, Additional history exists Insurance HMO [facility] HMO Care Teams Hand Screen Printer Relationship Specialty Start Date End Date Donnell Mora MD [address] [place] [address] PCP - General 08/26/16
--- OUTSIDE RECORDS SUMMARY | 2024-06-20 11:30 | XMS_ITS | Clinical Summary ---
Author Organization [facility] Address [address] [address] Phone Care Team Providers Care Molecular Technologist Name Role Phone Donnell Mora MD Primary Care Provider [phone] Allergies No known active allergies Medications polyethylene glycol (MIRALAX) Powder Mix the entire bottle with 64 oz of a clear liquid. Use as directed by the office for colonoscopy prep. 255 g 7 Active polyethylene glycol (MIRALAX) Powder Mix the entire bottle with 64 oz of a clear liquid. Use as directed by the office for colonoscopy prep. 255 g 8 Active polyethylene glycol (MIRALAX) Powder Please use entire 255 gram for colonoscopy prep as directed by office. 1 Bottle 8 Active valsartan (DIOVAN) 160 MG Tablet Take 160 mg by mouth daily. 1 8 Active Dutasteride-Florez sulosin HCl 0.5-0.4 MG Capsule TAKE ONE CAPSULE BY MOUTH AT BEDTIME PT NEEDS APPOINTMENT 0 8 Active atorvastatin (LIPITOR) 80 MG Tablet Take 80 mg by mouth daily. 1 8 Active fenofibrate (TRICOR) 48 MG Tablet Take 48 mg by mouth daily. Active aspirin 325 MG Tablet Take 325 mg by mouth daily. Active Family History Medical History Relation Name Comments Breast Cancer Mother Relation Name Status Comments Mother Social History Tobacco Use Types Packs/Day Years Used Date Smoking Tobacco: Never Smokeless Tobacco: Never Alcohol Use Standard Drinks/Week Comments No 0 (1 standard drink = 0.6 oz pur e alcohol) Sex and Gender Information Value Date Recorded Sex Assigned at Not on file Legal Sex Male 10:15 AM SAMPLE STITCHER Gender Identity Not on file Sexual Orientation Not on file Plan of Treatment Health Maintenance Due Date Last Done Comments Hepatitis C Virus (HCV) Screening 1955 TdaP Immunization 1955 Cologuard 08/21/2005 Immunochemical Fecal Occult Blood 08/21/2005 Pneumococcal Immunization (5 0+ years) (1 of 1 - PCV) 08/21/2005 PSA Discussion 08/21/2010 Zoster Immunization (2 of 3) 03/26/2016 01/30/2016 Influenza Immunization (#1) 2024 03/26/2016 SARS-COV-2 Immunization ( - season) 2024 Colonoscopy 11/28/2027 11/27/2017 Colorectal Cancer Screening 11/28/2027 Respiratory Syncytial Virus (RSV) Immunization (Adult) (1 - 1-dose 75+ series) 08/21/2030 11/27/2017 Hepatitis B Immunization Aged Out No longer eligible based on patient's age to complete this topic Meningococcal Immunization (ACWY) Aged Out No longer eligible based on patient's age to complete this topic Rotavirus Immunization Aged Out No lo nger eligible based on patient's age to complete this topic Procedures Procedure Name Priority Date/Time Associated Diagnosis Comments COLONOSCOPY Routine 11/27/2017 from Last 3 Months or Most Recently Relevant to Health Maintenance Results * COLONOSCOPY (11/27/2017) Raul Fried DO PROCEDURE/MINOR SURGICAL ORDERA BLES Final Result from Last 3 Months or Most Recently Relevant to Health Maintenance Insurance Care Teams Molecular Technologist Relationship Specialty Start Date End Date Donnell Mora MD [address] [place] [address] PCP - General Internal Medicine 12/04/17
--- OUTSIDE RECORDS SUMMARY | 2024-06-20 11:30 | XMS_ITS | Referral Summary ---
Author Organization [facility] [address] Address [address] [place] [address] Care Team Providers Care Disbursing Officer Name Role Phone Donnell Mora MD Primary [...] Diagnosed Date Coronary artery disease invo lving [place] coronary artery of [place] heart without angina pectoris 03/23/2017 Hx of CABG 03/23/2017 Social History Tobacco Use Types Packs/Day Years Used Date Smoking Tobacco: Never Smokeless Tobacco: Never Tobacco Cessation:Counseling Given: Not Answered Alcohol Use Standard Drinks/Week Comments Yes 0 (1 standard drink = 0.6 oz pur e alcohol) Sex and Gender Information Value Date Recorded Sex Assigned at Not on file Legal Sex Male 11:46 PM WELT SOLE LAYER Gender Identity Not on file Sexual Orientation Not on file Last Filed Vital Signs Vital Sign Reading Time Taken Comments Blood Pressure 144/82 08/01/2023 8:37 AM WELT SOLE LAYER Pulse 79 08/01/2023 8:37 AM WELT SOLE LAYER Temperature - - Respiratory Rate 12 03/23/2017 11:00 AM CDT Oxygen Saturation 97% 08/01/2023 8:37 AM WELT SOLE LAYER Inhaled Oxygen Concentration - - Weight 119.7 kg (264 lb) 08/01/2023 8:37 AM WELT SOLE LAYER Height 167.6 cm (5' 6 ) 08/01/2023 8:37 AM WELT SOLE LAYER Body Mass Index 42.61 08/01/2023 8:37 AM WELT SOLE LAYER Plan of Treatment Not on file Insurance [facility] [employer] Care Teams Disbursing Officer Relationship Specialty Start Date End Date Donnell Mora MD [address] [place] [address] PCP - General 08/26/16
--- OUTSIDE RECORDS SUMMARY | 2024-06-20 11:30 | XMS_ITS | Patient Health Summary ---
Author Organization [facility] Address [address] [place] [address] Care Team Providers Care Industrial Organization Manager Name Role Phone Donnell Mora MD Primary Care Provider [phone] Note from [facility],non-owned Affiliates and Associated Physician Practices is amultiple site organization consisting of ambulatory clinics and hospital sitesin [place], [place], [place] and [place]. This disclosure is being madepursuant to the Care Everywhere program and may not contain all information available regarding this patient. Last updated 18.[facility] Immunizations * FLU VACCINE QUAD IIV4 PF ID(Given 03/26/2016) * ZOSTER VACCINE, LIVE(Given 01/30/2016) Social History Tobacco Use Types Packs/Day Years Used Date Smoking Tobacco: Never Assessed Sex and Gender Information Value Date Recorded Sex Assigned at Not on file Gender Identity Not on file Sexual Orientation Not on file Care Teams Industrial Organization Manager Relationship Specialty Start Date End Date Donnell Mora MD [address] [place] [id number] PCP - General 11/28/17
== END 2024-06-17 07:09 | disposition home or self-care (01) ==
PROVIDERS: PCP Emergency Medicine; Visit Provider Emergency Medicine
DX: E78.5 Hyperlipidemia, unspecified (principal); E11.9 Type 2 diabetes mellitus without complications; E55.9 Vitamin D deficiency, unspecified
CPT/HCPCS: 36415; 80053; 80061; 82306; 83036

== ENCOUNTER 2025-04-09 00:39 | Day surgery (SDC) | payer OTHER, MEDICARE, SELFPAY ==
[2025-04-04 14:11] VITALS: BMI 53.3
[2025-04-09 12:30] VITALS: BP 142/88; PULSE 78; RESP 18; TEMP 36.3; O2SAT 96
--- NOTE | 2025-04-09 12:35 | P.PNAN_ITS ---
Anes - Initial Pre Proc Eval Procedure: Operation Date: 04/09/25 13:30 Proposed Procedures p Screening Colonoscopy - Willis Gamboa MD Date/Time: 04/09/25 12:35 Surgeon: Willis Gamboa MD Pre Op Diagnosis: Personal history of colon polyps, unspecified Patient Data Age: 69 Gender: M Height: 1.68 m Weight: 108.6 kg Last Vital Signs Temp 36.3 C L 04/09/25 12:30 Pulse 78 04/09/25 12:30 Resp 18 04/09/25 12:30 BP 142/88 H 04/09/25 12:30 Pulse Ox 96 04/09/25 12:30 O2 Del Method Room Air 04/09/25 12:30 Allergies Allergy/AdvReac Type Severity Reaction Status Date / Time No Known Allergies Allergy Verified 04/04/25 14:10 Home Medications ?Medication ?Instructions ?Recorded ?Confirmed ?Type aspirin 325 mg tablet See Rx Instructions .Route . COMPLEX 05/09/19 04/04/25 History tadalafil 5 mg tablet 5 mg PO DAILY 09/29/2104/04 History atorvastatin 80 mg tablet 80 mg PO DAILY #90 tabs 11/2604/04/25 Rx nystatin-triamcinolone 100,000 See Rx Instructions .Ro [place] 01/16/23 04/04/25 Rx unit/g-0.1 % topical cream .COMPLEX #60 grams triamcinolone acetonide 0.1 % See Rx Instructions .Rou te 02/15/23 04/04/25 Rx topical ointment .COMPLEX #60 grams ketoconazole 2 % topical cream See Rx Instructions .Ro [place] 05/15/23 04/04/25 Rx .COMPLEX #30 grams fluticasone propionate 50 1 spray intranasal BID #48 g [place] 01/24/24 04/04/25 Rx mcg/actuation nasal spray,suspension (Flonase Allergy Relief) pantoprazole 40 mg tablet,delayed 40 mg PO DAILY #90 t abs 01/24/24 04/04/25 Rx release (Protonix) fenofibrate nanocrystallized 48 mg See Rx Instructions .Route 07/17/24 04/04/25 Rx tablet .COMPLEX #90 tabs tirzepatide (weight loss) 15 15 mg (0.5 mL) subcut WEE KLY #6 mL 11/18/24 04/04/25 Rx mg/0.5 mL subcutaneous pen injector (Zepbound) zolpidem 10 mg tablet 10 mg PO QHS PRN insomnia #3 0 tabs 12/11/24 04/04/25 Rx amlodipine 5 mg tablet See Rx Instructions .Route 0 01/09/25 04/04/25 Rx .COMPLEX #90 tabs losartan 50 mg tablet See Rx Instructions .Route 0 01/13/25 04/04/25 Rx .COMPLEX #180 tabs albuterol sulfate 90 mcg/actuation See Rx Instructions .Route 02/26/25 04/04/25 Rx aerosol inhaler .COMPLEX #25.5 ea Patient hx anesthesia problems: none Family hx anesthesia problems: none Results Review: All pre-operative results and documents have been reviewed as part of the pre- operative evaluation. [facility] Past Medical History Medical History Skin lesion of face Insomnia Diverticulitis Benign prostatic hyperplasia Atherosclerotic heart disease of [place] coronary artery with angina pectoris Hyperglycemia URI, acute Left lower quadrant pain Elevated fasting glucose Cough Acute pain of left wrist Actinic keratosis of left religious Sinus congestion URI with cough and congestion Sinusitis Contact dermatitis Dyspnea on exertion Fever Dry cough Close exposure to COVID-19 virus HLD (hyperlipidemia) ASHD (arteriosclerotic heart disease) Surgical History Surgical History H/O umbilical hernia repair 03/28/22 Robotic assisted transabdominal pre peritoneal repair incarcerated umbilical hernia with mesh Status post double vessel coronary artery bypass Family History Family History Mother Breast cancer Unknown Heart disease Social History Social History (Updated 02/14/25 @ 09:08 by Renetta Hou MA) Social History: drinks tea daily Smoking status: Never smoker Second hand tobacco smoke exposure: No Alcohol intake: never Substance use: never Substance use type: does not use Do You Feel Safe in your Home?: Yes Lack of Transportation: No Lack of Food: Never True Current Housing: Decline to Answer Concerned About Future Housing: Decline to Answer Difficulty Paying Gas/Electric Bills: Decline to Answer Difficulty Paying for Meds: Decline to Answer Currently Unemployed: Decline to Answer Education: Decline to Answer Difficulty w/ Childcare or Family Care: Decline to Answer Living arrangements: with family Additional living arrangements comments: Occupation/Education: occupation 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 Informed Consent: The patient's anesthetic plan and its attendant risks and benefits were discussed with the patient/family/POA. Questions were solicited and answers provided to the satisfaction of the patient/family/POA.
[2025-04-09] MEDS: LACTATED RINGERS 1,000 ML 150 ML IV CONT (12:41)
--- NOTE | 2025-04-09 13:02 | SUR.OPER ---
Dr. Gamboa 1 hour behind schedule. Pt updated on delay.
--- NOTE | 2025-04-09 14:11 | P.HP_ITS ---
H&P: HPI History of Present Illness Date/Time: 04/09/25 14:11 Chief Complaint: History of colon polyps Narrative: The patient has a history of colonic polyps, the last colonoscopy was in 2019. Review of Systems Review of Systems: All systems reviewed & are unremarkable except as noted in HPI and below PMFSH Past Medical History Medical History Skin lesion of face Insomnia Diverticulitis Benign prostatic hyperplasia Atherosclerotic heart disease of [place] coronary artery with angina pectoris Hyperglycemia URI, acute Left lower quadrant pain Elevated fasting glucose Cough Acute pain of left wrist Actinic keratosis of left holiness Sinus congestion URI with cough and congestion Sinusitis Contact dermatitis Dyspnea on exertion Fever Dry cough Close exposure to COVID-19 virus HLD (hyperlipidemia) ASHD (arteriosclerotic heart disease) Surgical History Surgical History H/O umbilical hernia repair 03/28/22 Robotic assisted transabdominal pre peritoneal repair incarcerated umbilical hernia with mesh Status post double vessel coronary artery bypass Family History Family History Mother Breast cancer Unknown Heart disease Social History Social History (Updated 02/14/25 @ 09:08 by Renetta Hou MA) Social History: drinks tea daily Smoking status: Never smoker Second hand tobacco smoke exposure: No Alcohol intake: never Substance use: never Substance use type: does not use Do You Feel Safe in your Home?: Yes Lack of Transportation: No Lack of Food: Never True Current Housing: Decline to Answer Concerned About Future Housing: Decline to Answer Difficulty Paying Gas/Electric Bills: Decline to Answer Difficulty Paying for Meds: Decline to Answer Currently Unemployed: Decline to Answer Education: Decline to Answer Difficulty w/ Childcare or Family Care: Decline to Answer Living arrangements: with family Additional living arrangements comments: Occupation/Education: occupation 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 COMPLEX 05/09/19 04/04/25 History tadalafil 5 mg tablet 5 mg PO DAILY 09/29/2104/04 History atorvastatin 80 mg tablet 80 mg PO DAILY #90 tabs 11/2604/04/25 Rx nystatin-triamcinolone 100,000 See Rx Instructions .Ro [place] 01/16/23 04/04/25 Rx unit/g-0.1 % topical cream .COMPLEX #60 grams triamcinolone acetonide 0.1 % See Rx Instructions .Rou te 02/15/23 04/04/25 Rx topical ointment .COMPLEX #60 grams ketoconazole 2 % topical cream See Rx Instructions .[place] 05/15/23 04/04/25 Rx .COMPLEX #30 grams fluticasone propionate 50 1 spray intranasal BID #48 g [place] 01/24/24 04/04/25 Rx mcg/actuation nasal spray,suspension (Flonase Allergy Relief) pantoprazole 40 mg tablet,delayed 40 mg PO DAILY #90 t abs 01/24/24 04/04/25 Rx release (Protonix) fenofibrate nanocrystallized 48 mg See Rx Instructions .Route 07/17/24 04/04/25 Rx tablet .COMPLEX #90 tabs tirzepatide (weight loss) 15 15 mg (0.5 mL) subcut WEE KLY #6 mL 11/18/24 04/09/25 Rx mg/0.5 mL subcutaneous pen injector (Zepbound) zolpidem 10 mg tablet 10 mg PO QHS PRN insomnia #3 0 tabs 12/11/24 04/04/25 Rx amlodipine 5 mg tablet See Rx Instructions .Route 0 01/09/25 04/04/25 Rx .COMPLEX #90 tabs losartan 50 mg tablet See Rx Instructions .Route 0 01/13/25 04/04/25 Rx .COMPLEX #180 tabs albuterol sulfate 90 mcg/actuation See Rx Instructions .Route 02/26/25 04/04/25 Rx aerosol inhaler .COMPLEX #25.5 ea Allergies Allergy/AdvReac Type Severity Reaction Status Date / Time No Known Allergies Allergy Verified 04/04/25 14:10 Vital Signs Vital Signs - 24 hr 04/09/25 12:30 Temperature 97.3 F L Pulse Rate 78 Respiratory Rate 18 Blood Pressure 142/88 H Pulse Oximetry 96 Oxygen Delivery Room Air Exam Const: General: cooperative and healthy appearing Resp: Effort & Inspection: normal respiratory effort and able to speak in complete sentences Auscultation: clear to auscultation bilaterally Cardio: Rate: regular rate Rhythm: regular rhythm GI: Inspection: normal to inspection GI Palp: No No hepatosplenomegaly present Auscultation: normal bowel sounds Rectal Exam: deferred Skin: General skin exam: normal color Psych: Appearance: grossly normal Mental Status: mental status grossly normal Assessment and Plan Assessment and plan (1) History of colonic polyps: Code(s): Z86.0100 - Personal history of colon polyps, unspecified Status: Acute Assessment and Plan: The patient is deemed a good candidate for the procedure. Consent signed. Will proceed.
[2025-04-09 14:59] VITALS: BP 137/86; PULSE 97; RESP 18; O2SAT 94
[2025-04-09 15:09] VITALS: BP 146/102; PULSE 97; RESP 18; O2SAT 97
[2025-04-09 15:19] VITALS: BP 121/85; PULSE 81; RESP 20; O2SAT 97
== END 2025-04-09 15:35 | disposition home or self-care (01) ==
PROVIDERS: PCP Emergency Medicine; Referring Provider Family Medicine; Visit Provider Internal Medicine Gastroenterology
PROC: 0DJD8ZZ Inspection of Lower Intestinal Tract, Via Natural or Artificial Opening Endoscopic (ICD-10-PCS; CPT 45378; principal; 2025-04-09 13:30)
DX: Z12.11 Encounter for screening for malignant neoplasm of colon (principal); K63.5 Polyp of colon; K57.30 Diverticulosis of large intestine without perforation or abscess without bleeding; E66.9 Obesity, unspecified; Z68.38 Body mass index [BMI] 38.0-38.9, adult
CPT/HCPCS: 45378; J2003; J2704; J7120